=== PATIENT | male | born 2000 | race African-American/Black ===

== ENCOUNTER 2023-03-16 10:54 | Emergency (ER) | payer MEDICAID ==
[~2023-03-16] VITALS: Ht 167.7 cm; Wt 67.1 kg
--- NOTE | 2023-03-16 11:24 | ED Upper Extremity ---
General Chief Complaint: Laceration Stated Complaint: RT HAND LACERATION Source: patient Exam Limitations: no limitations (MARGY CERRATO APRN) History of Present Illness Date Seen by Provider: Mar 16, 2023 Time Seen by Provider: 11:15 Initial Comments 22-year-old male presents to the ER with laceration to right hand. States that approximately 20 minutes prior to arrival, he was opening a garage door and the handle broke which caused the laceration to his hand. He is uncertain of his last tetanus. Past medical history includes hypertension, he takes metoprolol and a diuretic. (MARGY CERRATO APRN) Allergies and Home Medications Allergies Coded Allergies: No Known Drug Allergies (Unverified , 03/16/23) Patient Home Medication List Home Medication List Reviewed: Yes (MARGY CERRATO APRN) Review of Systems Constitutional: see HPI (MARGY CERRATO APRN) Past Crjucev-Hlqtnn-Qzancg Hx Patient Social History Tobacco Use?: No Substance use?: No Alcohol Use?: No Pt feels they are or have been: No (MARGY CERRATO APRN) Physical Exam Vital Signs Vital Signs - First Documented 03/16/23 11:05 Pulse 74 Resp 18 B/P (MAP) 165/88 (113) Pulse Ox 98 O2 Delivery Room Air (JENNIFER TAYLOR MD) Vital Signs Capillary Refill : (MARGY CERRATO APRN) Height, Weight, BMI Height: '" Weight: lbs. oz. kg; BMI Method: General Appearance: WD/WN, no apparent distress Neck: supple, normal inspection Cardiovascular: regular rate, rhythm Respiratory: lungs clear, normal breath sounds, no respiratory distress, no accessory muscle use Hand: Right, laceration Neurologic/Psychiatric: alert, normal mood/affect Skin: normal color, warm/dry (MARGY CERRATO APRN) Procedures/Interventions Wound Location: Upper Extremities Other Wound Location Right palm, at base of second digit Wound Length (cm): 1 Wound's Depth, Shape: linear Wound Explored: clean Irrigated w/ Saline (ccs): 100 Anesthesia: 1% Lidocaine Wound Debrided: minimal Suture: Ethlion Suture Size: 4-0 Number of Sutures: 3 (MARGY CERRATO APRN) Progress/Results/Core Measures Progress Progress Note : Progress Note Patient seen and evaluated, resting comfortably in recliner, no acute distress. Laceration repaired, see procedure note. Tetanus updated. Discharge instructions and return precautions provided. (MARGY CERRATO APRN) Departure Impression Primary Impression: Laceration Disposition: 01 HOME, SELF-CARE Condition: Stable Departure-Patient Inst. Decision time for Depature: 11:42 (MARGY CERRATO APRN) Referrals: BRUNO HILTON (PCP/Family) Primary Care Physician Patient Instructions: Laceration Repair With Stitches ED Add. Discharge Instructions: Keep your hand clean and dry. You may wash your hands, let soap and water run over it, do not soak your hand. Applied Neosporin twice a day. Return in 7 to 10 days to have the sutures removed. Return for signs of infection including redness, swelling, discolored odorous drainage, or any other new, concerning, or worsening symptoms. All discharge instructions reviewed with patient and/or family. Voiced understanding. ATTENDING PHYSICIAN NOTE: I was physically present as attending physician in the emergency department during the care of this patient, but I was not directly involved in the decision making or delivery of care for this patient. (JENNIFER TAYLOR MD) MARGY CERRATO APRN Mar 16, 2023 11:24 JENNIFER TAYLOR MD Mar 18, 2023 04:05
[2023-03-16] MEDS ORDERED: Tetanus/Diphtheria/Pertussis (Acell) ADULT Vaccine 0.5 ML IM ONE (11:30)
[2023-03-16] MEDS ORDERED: LIDOCAINE 1% INJ 10 ML VIAL INJ ONE (11:30)
[2023-03-16 11:58] VITALS: BP 165/88
== END 2023-03-16 11:58 | disposition home or self-care (01) ==
LOC: EDUNIT# 10:54 → ER 10:59
DX: S61.411A Laceration without foreign body of right hand, initial encounter (principal); I10 Essential (primary) hypertension; Z79.899 Other long term (current) drug therapy; W26.8XXA Contact with other sharp object(s), not elsewhere classified, initial encounter
CPT/HCPCS: 90715

== ENCOUNTER 2023-03-24 16:28 | Emergency (ER) | payer MEDICAID ==
[2023-03-24 17:46] VITALS: BP 152/77
== END 2023-03-24 17:46 | disposition home or self-care (01) ==
LOC: EDUNIT# 16:28 → ER 16:29
DX: Z48.02 Encounter for removal of sutures (principal)